=== PATIENT | male | born 1990 | race Caucasian/White ===

== ENCOUNTER 2022-10-27 18:05 | Emergency (ER) | payer MEDICAID ==
[~2022-10-27] VITALS: Ht 177.8 cm; Wt 79.8 kg
--- NOTE | 2022-10-27 18:15 | NUR ---
BIBS C/O BACK PAIN THAT STARTED 3 DAYS AGO AND HAS GOTTEN WORSE, DENIES TRAUMA OR INJURY, PAIN 07/14. AMBULATORY PLACED IN BED.
[2022-10-27] MEDS ORDERED: CYCLOBENZAPRINE 10 MG TABLET PO ONE (18:30)
[2022-10-27] MEDS ORDERED: LIDOCAINE 5% (PATCH) 1 EA PATCH TP SCH (18:30)
[2022-10-27] MEDS ORDERED: IBUPROFEN 400 MG TABLET PO ONE (18:30)
[2022-10-27] MEDS ORDERED: CYCLOBENZAPRINE 10 MG TABLET ONE (18:39)
[2022-10-27] MEDS ORDERED: IBUPROFEN 400 MG TABLET ONE (18:39)
[2022-10-27] MEDS ORDERED: LIDOCAINE 5% (PATCH) 1 EA PATCH TP ONE (18:39)
--- NOTE | 2022-10-27 19:15 | NUR ---
X-RAY TECH AT BEDSIDE
[2022-10-27] MEDS ORDERED: CYCL5TAB PO (19:22)
[2022-10-27] MEDS ORDERED: IBUP-1957 PO (19:22)
--- NOTE | 2022-10-27 19:40 | NUR ---
Patient discharged to home in stable condition. Written and verbal after care instructions given. Patient verbalizes understanding of instruction.
[2022-10-27 19:43] VITALS: BP 135/75
== END 2022-10-27 19:35 | disposition home or self-care (01) ==
LOC: ER 18:05
DX: M54.9 Dorsalgia, unspecified (principal); M62.830 Muscle spasm of back; Z79.899 Other long term (current) drug therapy
CPT/HCPCS: 71045-TC

== ENCOUNTER 2024-07-27 12:10 | Emergency (ER) | payer MEDICAID ==
[~2024-07-27] VITALS: Ht 177.8 cm; Wt 81.6 kg
[~2024-07-27 12:10] MED LIST: CYCL5TAB PO; IBUP-1957 PO
[2024-07-27 12:14] VITALS: BP 127/74; TEMP 97.9
[2024-07-27] MEDS ORDERED: IBUPROFEN 600 MG TABLET ONE (12:25)
[2024-07-27] MEDS ORDERED: CYCLOBENZAPRINE 10 MG TABLET ONE (12:25)
[2024-07-27] MEDS: CYCLOBENZAPRINE 10 MG TABLET PO ONE (12:29)
[2024-07-27] MEDS: IBUPROFEN 600 MG TABLET PO ONE (12:29)
[2024-07-27] MEDS ORDERED: CYCL5TAB PO (12:44)
[2024-07-27 13:01] VITALS: O2SAT 97
== END 2024-07-27 13:02 | disposition home or self-care (01) ==
LOC: ER 12:46
DX: M54.6 Pain in thoracic spine (principal)